=== PATIENT | male | born 1960 | race Caucasian/White ===

== ENCOUNTER 2021-05-20 08:08 | Emergency (ER) | payer OTHER, MEDICARE ==
[2021-05-20] MEDS ORDERED: Ondansetron 4 MG/2 ML SDV IVPUSH ONE (08:09)
[2021-05-20 08:28] VITALS: BP 146/64; PULSE 116
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
[2021-05-20] MEDS ORDERED: HYDROmorphone 2 MG/ML SDV IVPUSH ONE ×2 (08:37→09:49)
[2021-05-20 08:40] LABS: BASE EXCESS VENOUS,POC 3 mmol/L (-2-3); HCO3 VENOUS,POC 32 mmol/L (21-29); PCO2 VENOUS,POC 65 mmHg (41-51)
[2021-05-20] MEDS ORDERED: Iopamidol 755 Mg/ML 100 ML Bottle IV ONE (08:48)
== END 2021-05-20 10:40 ==
LOC: FB.ED 08:08
DX: S02.2XXA Fracture of nasal bones, initial encounter for closed fracture (principal); S42.022A Displaced fracture of shaft of left clavicle, initial encounter for closed fracture; S14.109A Unspecified injury at unspecified level of cervical spinal cord, initial encounter; E78.00 Pure hypercholesterolemia, unspecified; I10 Essential (primary) hypertension; Z79.82 Long term (current) use of aspirin; Z79.899 Other long term (current) drug therapy; V49.40XA Driver injured in collision with unspecified motor vehicles in traffic accident, initial encounter
CPT/HCPCS: 36415; 70450; 70486; 71045; 71260; 72125; 72170; 73000-LT; 74177; 80053; 80307; 83605; 84484; 85025; 85610; 85730; 86850; 86900; 86901; 93005; 93010; 96374; 96375; 96376; 99284; 99285-25; J1170; J2405; Q9967

== ENCOUNTER 2021-06-01 12:34 | Inpatient (IN) | payer MEDICARE, OTHER ==
[2021-06-01] MEDS ORDERED: Triamcinolone Acetonide 0.1% Oint 15 GM Tube TOP PRN (16:34)
[2021-06-01] MEDS ORDERED: Nitroglycerin 0.4 MG Tab.SL SL PRN (16:34)
[2021-06-01] MEDS ORDERED: Naloxone 0.4 MG/ML SDV IM PRN (16:34)
[2021-06-01] MEDS ORDERED: Ondansetron 4 MG Tab.DIS PO PRN (16:40)
[2021-06-01] MEDS ORDERED: Zolpidem 5 MG Tab PO PRN (16:48)
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
[2021-06-01] MEDS: oxyCODONE 5 MG Tab PO PRN ×2 (18:34→23:49)
[2021-06-01] MEDS: Apixaban 5 MG Tab PO SCH (21:34)
[2021-06-01] MEDS: Diltiazem 120 MG Cap.CD PO SCH (21:34)
[2021-06-01] MEDS: atorvaSTATin 40 MG Tab PO SCH (21:35)
[2021-06-01] MEDS: Metoprolol Tartrate 50 MG Tab PO SCH (21:35)
[2021-06-01] MEDS: Penicillin V Potassium 250 MG Tab PO SCH (21:36)
[2021-06-01] MEDS: hydrOXYzine HCl 25 MG Tab PO PRN (23:49)
[2021-06-02] MEDS: Pantoprazole 40 MG Tab.CR PO SCH (06:18)
[2021-06-02] MEDS: Furosemide 20 MG Tab PO SCH (09:32)
[2021-06-02] MEDS: Apixaban 5 MG Tab PO SCH ×2 (09:32→20:51)
[2021-06-02] MEDS: Aspirin 81 MG Tab.EC PO SCH (09:32)
[2021-06-02] MEDS: Diltiazem 120 MG Cap.CD PO SCH ×2 (09:32→20:51)
[2021-06-02] MEDS: Metoprolol Tartrate 50 MG Tab PO SCH ×2 (09:33→20:52)
[2021-06-02] MEDS: Clopidogrel 75 MG Tab PO SCH (09:33)
[2021-06-02] MEDS: Ezetimibe 10 MG Tab PO SCH (09:34)
[2021-06-02] MEDS: Penicillin V Potassium 250 MG Tab PO SCH ×2 (09:34→20:53)
[2021-06-02] MEDS: Multivitamin Tab PO SCH (09:34)
[2021-06-02] MEDS: oxyCODONE 5 MG Tab PO PRN ×2 (12:20→19:18)
[2021-06-02] MEDS: atorvaSTATin 40 MG Tab PO SCH (20:52)
[2021-06-03] MEDS: oxyCODONE 5 MG Tab PO PRN ×3 (02:33→21:31)
[2021-06-03] MEDS: hydrOXYzine HCl 25 MG Tab PO PRN (02:33)
[2021-06-03] MEDS: Pantoprazole 40 MG Tab.CR PO SCH (05:50)
[2021-06-03] MEDS: Apixaban 5 MG Tab PO SCH ×2 (09:24→20:34)
[2021-06-03] MEDS: Diltiazem 120 MG Cap.CD PO SCH ×2 (09:24→20:42)
[2021-06-03] MEDS: Metoprolol Tartrate 50 MG Tab PO SCH ×2 (09:25→20:43)
[2021-06-03] MEDS: Aspirin 81 MG Tab.EC PO SCH (09:25)
[2021-06-03] MEDS: Furosemide 20 MG Tab PO SCH (09:25)
[2021-06-03] MEDS: Ezetimibe 10 MG Tab PO SCH (09:26)
[2021-06-03] MEDS: Penicillin V Potassium 250 MG Tab PO SCH ×2 (09:26→20:35)
[2021-06-03] MEDS: Multivitamin Tab PO SCH (09:26)
[2021-06-03] MEDS: Clopidogrel 75 MG Tab PO SCH (09:26)
[2021-06-03] MEDS: Acetaminophen 325 MG Tab PO PRN (16:34)
[2021-06-03] MEDS: atorvaSTATin 40 MG Tab PO SCH (20:44)
[2021-06-04] MEDS: Pantoprazole 40 MG Tab.CR PO SCH (05:35)
[2021-06-04] MEDS: Apixaban 5 MG Tab PO SCH ×2 (08:56→20:06)
[2021-06-04] MEDS: Diltiazem 120 MG Cap.CD PO SCH ×2 (08:56→20:07)
[2021-06-04] MEDS: Aspirin 81 MG Tab.EC PO SCH (08:56)
[2021-06-04] MEDS: Penicillin V Potassium 250 MG Tab PO SCH ×2 (08:57→20:06)
[2021-06-04] MEDS: Metoprolol Tartrate 50 MG Tab PO SCH ×2 (08:57→20:06)
[2021-06-04] MEDS: Furosemide 20 MG Tab PO SCH (08:57)
[2021-06-04] MEDS: Ezetimibe 10 MG Tab PO SCH (08:57)
[2021-06-04] MEDS: Multivitamin Tab PO SCH (08:57)
[2021-06-04] MEDS: Clopidogrel 75 MG Tab PO SCH (08:57)
[2021-06-04] MEDS: oxyCODONE 5 MG Tab PO PRN (10:14)
[2021-06-04] MEDS: atorvaSTATin 40 MG Tab PO SCH (20:07)
[2021-06-04] MEDS: Acetaminophen 325 MG Tab PO PRN (22:52)
[2021-06-05] MEDS: hydrOXYzine HCl 25 MG Tab PO PRN ×2 (02:37→22:03)
[2021-06-05] MEDS: Pantoprazole 40 MG Tab.CR PO SCH (06:15)
[2021-06-05] MEDS: oxyCODONE 5 MG Tab PO PRN ×2 (08:34→18:52)
[2021-06-05] MEDS: Metoprolol Tartrate 50 MG Tab PO SCH ×2 (08:35→20:22)
[2021-06-05] MEDS: Penicillin V Potassium 250 MG Tab PO SCH ×2 (08:36→20:22)
[2021-06-05] MEDS: Apixaban 5 MG Tab PO SCH ×2 (08:36→20:23)
[2021-06-05] MEDS: Aspirin 81 MG Tab.EC PO SCH (08:36)
[2021-06-05] MEDS: Multivitamin Tab PO SCH (08:36)
[2021-06-05] MEDS: Ezetimibe 10 MG Tab PO SCH (08:37)
[2021-06-05] MEDS: Diltiazem 120 MG Cap.CD PO SCH ×2 (08:37→20:23)
[2021-06-05] MEDS: Clopidogrel 75 MG Tab PO SCH (08:37)
[2021-06-05] MEDS: Furosemide 20 MG Tab PO SCH (08:37)
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
[2021-06-05] MEDS: atorvaSTATin 40 MG Tab PO SCH (20:23)
[2021-06-06] MEDS: Pantoprazole 40 MG Tab.CR PO SCH (06:02)
[2021-06-06] MEDS: oxyCODONE 5 MG Tab PO PRN ×2 (08:08→20:04)
[2021-06-06] MEDS: Ezetimibe 10 MG Tab PO SCH (08:09)
[2021-06-06] MEDS: Diltiazem 120 MG Cap.CD PO SCH ×2 (08:09→20:06)
[2021-06-06] MEDS: Apixaban 5 MG Tab PO SCH ×2 (08:09→20:01)
[2021-06-06] MEDS: Clopidogrel 75 MG Tab PO SCH (08:09)
[2021-06-06] MEDS: Aspirin 81 MG Tab.EC PO SCH (08:09)
[2021-06-06] MEDS: Penicillin V Potassium 250 MG Tab PO SCH ×2 (08:10→20:04)
[2021-06-06] MEDS: Multivitamin Tab PO SCH (08:10)
[2021-06-06] MEDS: Furosemide 20 MG Tab PO SCH (08:10)
[2021-06-06] MEDS: Metoprolol Tartrate 50 MG Tab PO SCH ×2 (08:10→20:02)
[2021-06-06] MEDS: atorvaSTATin 40 MG Tab PO SCH (20:02)
[2021-06-07] MEDS: Sodium Chloride 0.65% Nasal Spray 45 ML Bottle NAS PRN (04:43)
[2021-06-07] MEDS: Pantoprazole 40 MG Tab.CR PO SCH (05:06)
[2021-06-07] MEDS: oxyCODONE 5 MG Tab PO PRN (08:14)
[2021-06-07] MEDS: Apixaban 5 MG Tab PO SCH ×2 (08:24→20:59)
[2021-06-07] MEDS: Diltiazem 120 MG Cap.CD PO SCH ×2 (08:24→21:01)
[2021-06-07] MEDS: Aspirin 81 MG Tab.EC PO SCH (08:25)
[2021-06-07] MEDS: Metoprolol Tartrate 50 MG Tab PO SCH ×2 (08:25→20:59)
[2021-06-07] MEDS: Furosemide 20 MG Tab PO SCH (08:25)
[2021-06-07] MEDS: Clopidogrel 75 MG Tab PO SCH (08:25)
[2021-06-07] MEDS: Multivitamin Tab PO SCH (08:26)
[2021-06-07] MEDS: Penicillin V Potassium 250 MG Tab PO SCH ×2 (08:26→20:59)
[2021-06-07] MEDS: Ezetimibe 10 MG Tab PO SCH (08:26)
[2021-06-07] MEDS: atorvaSTATin 40 MG Tab PO SCH (21:00)
[2021-06-08] MEDS: hydrOXYzine HCl 25 MG Tab PO PRN ×2 (00:53→20:56)
[2021-06-08] MEDS: Pantoprazole 40 MG Tab.CR PO SCH (06:14)
[2021-06-08] MEDS: oxyCODONE 5 MG Tab PO PRN (06:29)
[2021-06-08] MEDS: Diltiazem 120 MG Cap.CD PO SCH ×2 (19:50→20:57)
[2021-06-08] MEDS: Furosemide 20 MG Tab PO SCH (19:51)
[2021-06-08] MEDS: Apixaban 5 MG Tab PO SCH ×2 (19:51→20:56)
[2021-06-08] MEDS: Aspirin 81 MG Tab.EC PO SCH (19:51)
[2021-06-08] MEDS: Metoprolol Tartrate 50 MG Tab PO SCH ×2 (19:52→21:02)
[2021-06-08] MEDS: Multivitamin Tab PO SCH (19:53)
[2021-06-08] MEDS: Penicillin V Potassium 250 MG Tab PO SCH ×2 (19:53→21:01)
[2021-06-08] MEDS: Ezetimibe 10 MG Tab PO SCH (19:53)
[2021-06-08] MEDS: Clopidogrel 75 MG Tab PO SCH (19:53)
[2021-06-08] MEDS: atorvaSTATin 40 MG Tab PO SCH (21:01)
[2021-06-08] MEDS: Sodium Chloride 0.65% Nasal Spray 45 ML Bottle NAS PRN (22:00)
[2021-06-09] MEDS: oxyCODONE 5 MG Tab PO PRN (04:57)
[2021-06-09] MEDS: Sodium Chloride 0.65% Nasal Spray 45 ML Bottle NAS PRN ×2 (04:57→08:23)
[2021-06-09] MEDS: Pantoprazole 40 MG Tab.CR PO SCH (05:00)
[2021-06-09] MEDS: Apixaban 5 MG Tab PO SCH ×2 (08:25→20:58)
[2021-06-09] MEDS: Clopidogrel 75 MG Tab PO SCH (08:26)
[2021-06-09] MEDS: Aspirin 81 MG Tab.EC PO SCH (08:27)
[2021-06-09] MEDS: Diltiazem 120 MG Cap.CD PO SCH ×2 (08:28→20:57)
[2021-06-09] MEDS: Penicillin V Potassium 250 MG Tab PO SCH ×2 (08:29→21:00)
[2021-06-09] MEDS: Metoprolol Tartrate 50 MG Tab PO SCH ×2 (08:30→20:59)
[2021-06-09] MEDS: Furosemide 20 MG Tab PO SCH (08:31)
[2021-06-09] MEDS: Multivitamin Tab PO SCH (08:31)
[2021-06-09] MEDS: Ezetimibe 10 MG Tab PO SCH (08:32)
[2021-06-09] MEDS: atorvaSTATin 40 MG Tab PO SCH (20:58)
[2021-06-09] MEDS: hydrOXYzine HCl 25 MG Tab PO PRN (21:01)
[2021-06-10] MEDS: Pantoprazole 40 MG Tab.CR PO SCH (05:10)
[2021-06-10] MEDS: Sodium Chloride 0.65% Nasal Spray 45 ML Bottle NAS PRN ×3 (05:21→21:21)
[2021-06-10] MEDS: oxyCODONE 5 MG Tab PO PRN (08:36)
[2021-06-10] MEDS: Penicillin V Potassium 250 MG Tab PO SCH ×2 (08:38→21:07)
[2021-06-10] MEDS: Furosemide 20 MG Tab PO SCH (08:38)
[2021-06-10] MEDS: Metoprolol Tartrate 50 MG Tab PO SCH ×2 (08:39→21:07)
[2021-06-10] MEDS: Apixaban 5 MG Tab PO SCH ×2 (08:40→21:06)
[2021-06-10] MEDS: Multivitamin Tab PO SCH (08:40)
[2021-06-10] MEDS: Clopidogrel 75 MG Tab PO SCH (08:43)
[2021-06-10] MEDS: Aspirin 81 MG Tab.EC PO SCH (08:43)
[2021-06-10] MEDS: Diltiazem 120 MG Cap.CD PO SCH ×2 (08:44→21:06)
[2021-06-10] MEDS: Ezetimibe 10 MG Tab PO SCH (08:45)
[2021-06-10] MEDS: atorvaSTATin 40 MG Tab PO SCH (21:07)
[2021-06-10] MEDS: hydrOXYzine HCl 25 MG Tab PO PRN (21:25)
[2021-06-11] MEDS: Sodium Chloride 0.65% Nasal Spray 45 ML Bottle NAS PRN (01:13)
[2021-06-11] MEDS: Pantoprazole 40 MG Tab.CR PO SCH (05:03)
[2021-06-11] MEDS: oxyCODONE 5 MG Tab PO PRN (07:40)
[2021-06-11] MEDS: Diltiazem 120 MG Cap.CD PO SCH ×2 (08:56→20:50)
[2021-06-11] MEDS: Apixaban 5 MG Tab PO SCH ×2 (08:59→20:51)
[2021-06-11] MEDS: Furosemide 20 MG Tab PO SCH (08:59)
[2021-06-11] MEDS: Aspirin 81 MG Tab.EC PO SCH (08:59)
[2021-06-11] MEDS: Clopidogrel 75 MG Tab PO SCH (09:00)
[2021-06-11] MEDS: Metoprolol Tartrate 50 MG Tab PO SCH ×2 (09:00→20:51)
[2021-06-11] MEDS: Ezetimibe 10 MG Tab PO SCH (09:01)
[2021-06-11] MEDS: Multivitamin Tab PO SCH (09:01)
[2021-06-11] MEDS: Penicillin V Potassium 250 MG Tab PO SCH ×2 (09:01→20:51)
[2021-06-11] MEDS: Fluticasone Propionate Nasal Spray 16 GM Bottle NASBOTH SCH (14:12)
[2021-06-11] MEDS: atorvaSTATin 40 MG Tab PO SCH (20:50)
[2021-06-11] MEDS: hydrOXYzine HCl 25 MG Tab PO PRN (22:10)
[2021-06-12] MEDS: Acetaminophen/HYDROcodone 325-5 MG Tab PO PRN (05:00)
[2021-06-12] MEDS: Sodium Chloride 0.65% Nasal Spray 45 ML Bottle NAS PRN (05:00)
[2021-06-12] MEDS: Pantoprazole 40 MG Tab.CR PO SCH (05:01)
[2021-06-12] MEDS: Diltiazem 120 MG Cap.CD PO SCH ×2 (08:01→20:06)
[2021-06-12] MEDS: Penicillin V Potassium 250 MG Tab PO SCH ×2 (08:01→20:07)
[2021-06-12] MEDS: Apixaban 5 MG Tab PO SCH ×2 (08:01→20:06)
[2021-06-12] MEDS: Furosemide 20 MG Tab PO SCH (08:01)
[2021-06-12] MEDS: Multivitamin Tab PO SCH (08:01)
[2021-06-12] MEDS: Aspirin 81 MG Tab.EC PO SCH (08:01)
[2021-06-12] MEDS: Clopidogrel 75 MG Tab PO SCH (08:01)
[2021-06-12] MEDS: Ezetimibe 10 MG Tab PO SCH (08:01)
[2021-06-12] MEDS: Metoprolol Tartrate 50 MG Tab PO SCH ×2 (08:02→20:07)
[2021-06-12] MEDS: Fluticasone Propionate Nasal Spray 16 GM Bottle NASBOTH SCH (08:02)
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
[2021-06-12] MEDS ORDERED: acetaZOLAMIDE 250 MG Tab PO ONE (13:59)
[2021-06-12] MEDS: atorvaSTATin 40 MG Tab PO SCH (20:06)
[2021-06-12] MEDS: hydrOXYzine HCl 25 MG Tab PO PRN (21:40)
[2021-06-13] MEDS: Pantoprazole 40 MG Tab.CR PO SCH (05:04)
[2021-06-13] MEDS: Apixaban 5 MG Tab PO SCH ×2 (09:06→21:04)
[2021-06-13] MEDS: Aspirin 81 MG Tab.EC PO SCH (09:07)
[2021-06-13] MEDS: Diltiazem 120 MG Cap.CD PO SCH ×2 (09:07→21:05)
[2021-06-13] MEDS: Fluticasone Propionate Nasal Spray 16 GM Bottle NASBOTH SCH (09:08)
[2021-06-13] MEDS: Furosemide 20 MG Tab PO SCH (09:09)
[2021-06-13] MEDS: Ezetimibe 10 MG Tab PO SCH (09:10)
[2021-06-13] MEDS: Clopidogrel 75 MG Tab PO SCH (09:10)
[2021-06-13] MEDS: Multivitamin Tab PO SCH (09:11)
[2021-06-13] MEDS: Metoprolol Tartrate 50 MG Tab PO SCH ×2 (09:11→21:05)
[2021-06-13] MEDS: Penicillin V Potassium 250 MG Tab PO SCH ×2 (09:11→21:05)
[2021-06-13] MEDS: Acetaminophen/HYDROcodone 325-5 MG Tab PO PRN (10:39)
[2021-06-13] MEDS ORDERED: Furosemide 20 MG Tab PO ONE (12:00)
[2021-06-13] MEDS: atorvaSTATin 40 MG Tab PO SCH (21:04)
[2021-06-14] MEDS: Pantoprazole 40 MG Tab.CR PO SCH (06:10)
[2021-06-14] MEDS: Acetaminophen 325 MG Tab PO PRN (07:52)
[2021-06-14] MEDS: Diltiazem 120 MG Cap.CD PO SCH ×2 (08:01→20:40)
[2021-06-14] MEDS: Apixaban 5 MG Tab PO SCH ×2 (08:01→20:40)
[2021-06-14] MEDS: Aspirin 81 MG Tab.EC PO SCH (08:01)
[2021-06-14] MEDS: Fluticasone Propionate Nasal Spray 16 GM Bottle NASBOTH SCH (08:01)
[2021-06-14] MEDS: Furosemide 20 MG Tab PO SCH (08:01)
[2021-06-14] MEDS: Metoprolol Tartrate 50 MG Tab PO SCH ×2 (08:02→20:40)
[2021-06-14] MEDS: Ezetimibe 10 MG Tab PO SCH (08:02)
[2021-06-14] MEDS: Penicillin V Potassium 250 MG Tab PO SCH ×2 (08:02→20:41)
[2021-06-14] MEDS: Clopidogrel 75 MG Tab PO SCH (08:02)
[2021-06-14] MEDS: Multivitamin Tab PO SCH (08:02)
[2021-06-14] MEDS ORDERED: Furosemide 20 MG Tab PO ONE (10:54)
[2021-06-14] MEDS: Acetaminophen/HYDROcodone 325-5 MG Tab PO PRN (18:09)
[2021-06-14] MEDS: atorvaSTATin 40 MG Tab PO SCH (20:40)
[2021-06-14] MEDS: hydrOXYzine HCl 25 MG Tab PO PRN (21:22)
[2021-06-15] MEDS: Pantoprazole 40 MG Tab.CR PO SCH (06:00)
[2021-06-15] MEDS: Acetaminophen/HYDROcodone 325-5 MG Tab PO PRN ×2 (07:41→16:53)
[2021-06-15] MEDS: Diltiazem 120 MG Cap.CD PO SCH ×2 (08:09→20:09)
[2021-06-15] MEDS: Fluticasone Propionate Nasal Spray 16 GM Bottle NASBOTH SCH (08:09)
[2021-06-15] MEDS: Apixaban 5 MG Tab PO SCH ×2 (08:09→20:04)
[2021-06-15] MEDS: Metoprolol Tartrate 50 MG Tab PO SCH ×2 (08:10→20:09)
[2021-06-15] MEDS: Furosemide 20 MG Tab PO SCH (08:10)
[2021-06-15] MEDS: Aspirin 81 MG Tab.EC PO SCH (08:10)
[2021-06-15] MEDS: Clopidogrel 75 MG Tab PO SCH (08:10)
[2021-06-15] MEDS: Multivitamin Tab PO SCH (08:11)
[2021-06-15] MEDS: Ezetimibe 10 MG Tab PO SCH (08:11)
[2021-06-15] MEDS: Penicillin V Potassium 250 MG Tab PO SCH ×2 (08:11→20:06)
[2021-06-15] MEDS: hydrOXYzine HCl 25 MG Tab PO PRN ×2 (11:20→22:08)
[2021-06-15] MEDS: atorvaSTATin 40 MG Tab PO SCH (20:04)
[2021-06-16] MEDS: Acetaminophen 325 MG Tab PO PRN ×2 (04:05→18:46)
[2021-06-16] MEDS: Pantoprazole 40 MG Tab.CR PO SCH (06:12)
[2021-06-16] MEDS: Acetaminophen/HYDROcodone 325-5 MG Tab PO PRN ×3 (06:14→20:16)
[2021-06-16] MEDS: Fluticasone Propionate Nasal Spray 16 GM Bottle NASBOTH SCH (09:00)
[2021-06-16] MEDS: Aspirin 81 MG Tab.EC PO SCH (09:04)
[2021-06-16] MEDS: Apixaban 5 MG Tab PO SCH ×2 (09:04→20:15)
[2021-06-16] MEDS: Diltiazem 120 MG Cap.CD PO SCH ×2 (09:04→20:16)
[2021-06-16] MEDS: Furosemide 20 MG Tab PO SCH (09:04)
[2021-06-16] MEDS: Metoprolol Tartrate 50 MG Tab PO SCH ×2 (09:05→20:15)
[2021-06-16] MEDS: Ezetimibe 10 MG Tab PO SCH (09:05)
[2021-06-16] MEDS: Clopidogrel 75 MG Tab PO SCH (09:05)
[2021-06-16] MEDS: Multivitamin Tab PO SCH (09:05)
[2021-06-16] MEDS: Penicillin V Potassium 250 MG Tab PO SCH ×2 (09:05→20:15)
[2021-06-16] MEDS: hydrOXYzine HCl 25 MG Tab PO PRN ×2 (13:41→20:16)
[2021-06-16] MEDS: Albuterol/Ipratropium 3.0-0.5 MG/3 ML Neb Soln INH PRN (20:15)
[2021-06-16] MEDS: atorvaSTATin 40 MG Tab PO SCH (20:15)
[2021-06-17] MEDS: Acetaminophen/HYDROcodone 325-5 MG Tab PO PRN ×3 (02:51→20:02)
[2021-06-17] MEDS: Albuterol/Ipratropium 3.0-0.5 MG/3 ML Neb Soln INH PRN ×2 (03:04→10:16)
[2021-06-17] MEDS: hydrOXYzine HCl 25 MG Tab PO PRN ×2 (03:10→17:24)
[2021-06-17] MEDS: Pantoprazole 40 MG Tab.CR PO SCH (06:22)
[2021-06-17] MEDS: Acetaminophen 325 MG Tab PO PRN ×2 (07:48→17:24)
[2021-06-17] MEDS: Diltiazem 120 MG Cap.CD PO SCH ×2 (08:00→20:03)
[2021-06-17] MEDS: Fluticasone Propionate Nasal Spray 16 GM Bottle NASBOTH SCH (08:00)
[2021-06-17] MEDS: Apixaban 5 MG Tab PO SCH ×2 (08:00→20:03)
[2021-06-17] MEDS: Penicillin V Potassium 250 MG Tab PO SCH (08:01)
[2021-06-17] MEDS: Metoprolol Tartrate 50 MG Tab PO SCH ×2 (08:01→20:04)
[2021-06-17] MEDS: Ezetimibe 10 MG Tab PO SCH (08:01)
[2021-06-17] MEDS: Multivitamin Tab PO SCH (08:01)
[2021-06-17] MEDS: Clopidogrel 75 MG Tab PO SCH (08:01)
[2021-06-17] MEDS: Aspirin 81 MG Tab.EC PO SCH (08:01)
[2021-06-17] MEDS: Furosemide 20 MG Tab PO SCH (08:01)
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
[2021-06-17] MEDS: Albuterol/Ipratropium 3.0-0.5 MG/3 ML Neb Soln NEB SCH ×3 (11:33→22:16)
[2021-06-17] MEDS: Levofloxacin 500 MG Tab PO SCH (11:37)
[2021-06-17] MEDS ORDERED: acetaZOLAMIDE 250 MG Tab PO ONE (14:53)
[2021-06-17] MEDS: guaiFENesin/Dextromethorphan 100-10 MG/5 ML Soln 5 ML Cup PO PRN (15:06)
[2021-06-17] MEDS: atorvaSTATin 40 MG Tab PO SCH (20:03)
[2021-06-17] MEDS: Budesonide 0.5 MG/2 ML Neb Susp NEB SCH (22:17)
[2021-06-17] MEDS: LORazepam 0.5 MG Tab PO PRN (22:55)
[2021-06-18] MEDS: Albuterol/Ipratropium 3.0-0.5 MG/3 ML Neb Soln INH PRN (02:36)
[2021-06-18] MEDS: Acetaminophen/HYDROcodone 325-5 MG Tab PO PRN ×3 (02:36→17:42)
[2021-06-18] MEDS: hydrOXYzine HCl 25 MG Tab PO PRN ×2 (02:36→11:29)
[2021-06-18] MEDS: Albuterol/Ipratropium 3.0-0.5 MG/3 ML Neb Soln NEB SCH ×3 (06:11→20:56)
[2021-06-18] MEDS: Budesonide 0.5 MG/2 ML Neb Susp NEB SCH ×2 (06:11→21:00)
[2021-06-18] MEDS: Pantoprazole 40 MG Tab.CR PO SCH (06:12)
[2021-06-18] MEDS: Diltiazem 120 MG Cap.CD PO SCH ×2 (08:06→20:50)
[2021-06-18] MEDS: Apixaban 5 MG Tab PO SCH ×2 (08:06→20:56)
[2021-06-18] MEDS: Metoprolol Tartrate 50 MG Tab PO SCH ×2 (08:06→20:58)
[2021-06-18] MEDS: Aspirin 81 MG Tab.EC PO SCH (08:06)
[2021-06-18] MEDS: Fluticasone Propionate Nasal Spray 16 GM Bottle NASBOTH SCH (08:06)
[2021-06-18] MEDS: Ezetimibe 10 MG Tab PO SCH (08:06)
[2021-06-18] MEDS: Clopidogrel 75 MG Tab PO SCH (08:07)
[2021-06-18] MEDS: Multivitamin Tab PO SCH (08:07)
[2021-06-18] MEDS ORDERED: Furosemide 40 MG Tab PO SCH (09:00)
[2021-06-18] MEDS ORDERED: Torsemide 20 MG Tab PO SCH (09:00)
[2021-06-18] MEDS: Spironolactone 25 MG Tab PO SCH (09:06)
[2021-06-18] MEDS: Acetaminophen 325 MG Tab PO PRN ×2 (11:29→21:43)
[2021-06-18] MEDS: Levofloxacin 500 MG Tab PO SCH (11:34)
[2021-06-18] MEDS: Furosemide 40 MG Tab PO SCH (17:12)
[2021-06-18] MEDS: LORazepam 0.5 MG Tab PO PRN (17:42)
[2021-06-18] MEDS: atorvaSTATin 40 MG Tab PO SCH (21:16)
[2021-06-19] MEDS: guaiFENesin/Dextromethorphan 100-10 MG/5 ML Soln 5 ML Cup PO PRN (04:26)
[2021-06-19] MEDS: Acetaminophen/HYDROcodone 325-5 MG Tab PO PRN ×3 (04:34→21:52)
[2021-06-19] MEDS: Albuterol/Ipratropium 3.0-0.5 MG/3 ML Neb Soln INH PRN (04:35)
[2021-06-19] MEDS: Budesonide 0.5 MG/2 ML Neb Susp NEB SCH ×3 (05:05→20:33)
[2021-06-19] MEDS: Pantoprazole 40 MG Tab.CR PO SCH (05:05)
[2021-06-19] MEDS: Albuterol/Ipratropium 3.0-0.5 MG/3 ML Neb Soln NEB SCH ×3 (06:10→20:52)
[2021-06-19] MEDS: LORazepam 0.5 MG Tab PO PRN ×2 (08:25→20:16)
[2021-06-19] MEDS: Furosemide 40 MG Tab PO SCH ×2 (08:28→15:49)
[2021-06-19] MEDS: Spironolactone 25 MG Tab PO SCH (08:29)
[2021-06-19] MEDS: Ezetimibe 10 MG Tab PO SCH (08:29)
[2021-06-19] MEDS: Multivitamin Tab PO SCH (08:29)
[2021-06-19] MEDS: Apixaban 5 MG Tab PO SCH ×2 (08:29→20:19)
[2021-06-19] MEDS: Metoprolol Tartrate 50 MG Tab PO SCH ×2 (08:29→20:21)
[2021-06-19] MEDS: Diltiazem 120 MG Cap.CD PO SCH ×2 (08:29→20:22)
[2021-06-19] MEDS: Aspirin 81 MG Tab.Chew PO SCH (08:30)
[2021-06-19] MEDS: Fluticasone Propionate Nasal Spray 16 GM Bottle NASBOTH SCH (08:30)
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
[2021-06-19] MEDS: Levofloxacin 500 MG Tab PO SCH (11:07)
[2021-06-19] MEDS: atorvaSTATin 40 MG Tab PO SCH (20:20)
[2021-06-19] MEDS: Acetaminophen 325 MG Tab PO PRN (20:26)
[2021-06-19] MEDS ORDERED: Mirtazapine 15 MG Tab PO SCH (21:00)
[2021-06-20] MEDS: hydrOXYzine HCl 25 MG Tab PO PRN (01:32)
[2021-06-20] MEDS: LORazepam 0.5 MG Tab PO PRN ×2 (01:57→08:15)
[2021-06-20] MEDS: Pantoprazole 40 MG Tab.CR PO SCH (05:55)
[2021-06-20] MEDS: Budesonide 0.5 MG/2 ML Neb Susp NEB SCH (07:13)
[2021-06-20] MEDS: Albuterol/Ipratropium 3.0-0.5 MG/3 ML Neb Soln NEB SCH ×2 (07:14→15:24)
[2021-06-20 08:01] VITALS: BP 117/58; PULSE 69
[2021-06-20] MEDS: Diltiazem 120 MG Cap.CD PO SCH (08:06)
[2021-06-20] MEDS: Apixaban 5 MG Tab PO SCH (08:06)
[2021-06-20] MEDS: Aspirin 81 MG Tab.Chew PO SCH (08:06)
[2021-06-20] MEDS: Spironolactone 25 MG Tab PO SCH (08:06)
[2021-06-20] MEDS: Furosemide 40 MG Tab PO SCH ×2 (08:06→15:24)
[2021-06-20] MEDS: Metoprolol Tartrate 50 MG Tab PO SCH (08:07)
[2021-06-20] MEDS: Multivitamin Tab PO SCH (08:07)
[2021-06-20] MEDS: Fluticasone Propionate Nasal Spray 16 GM Bottle NASBOTH SCH (08:07)
[2021-06-20] MEDS: Ezetimibe 10 MG Tab PO SCH (08:08)
[2021-06-20] MEDS: Acetaminophen/HYDROcodone 325-5 MG Tab PO PRN (08:31)
[2021-06-20] MEDS: Levofloxacin 500 MG Tab PO SCH (12:34)
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
[2021-06-24] MEDS ORDERED: Penicillin V Potassium 250 MG Tab PO SCH (09:00)
== END 2021-06-20 09:15 | DRG 559 ==
LOC: FB.MS 15:23
PROVIDERS: ADMIT Student in an Organized Health Care Education/Training Program; ATTEND Family Medicine
DX: S02.2XXD Fracture of nasal bones, subsequent encounter for fracture with routine healing (principal); J18.9 Pneumonia, unspecified organism; J90 Pleural effusion, not elsewhere classified; I50.32 Chronic diastolic (congestive) heart failure; J70.9 Respiratory conditions due to unspecified external agent; S42.023D Displaced fracture of shaft of unspecified clavicle, subsequent encounter for fracture with routine healing; S14.109D Unspecified injury at unspecified level of cervical spinal cord, subsequent encounter; I25.10 Atherosclerotic heart disease of native coronary artery without angina pectoris; E03.9 Hypothyroidism, unspecified; Z66 Do not resuscitate; K63.5 Polyp of colon; I05.0 Rheumatic mitral stenosis; I48.91 Unspecified atrial fibrillation; E78.00 Pure hypercholesterolemia, unspecified; I11.0 Hypertensive heart disease with heart failure; F41.9 Anxiety disorder, unspecified; F32.9 Major depressive disorder, single episode, unspecified; K21.9 Gastro-esophageal reflux disease without esophagitis; G47.30 Sleep apnea, unspecified; E78.5 Hyperlipidemia, unspecified; S22.089D Unspecified fracture of T11-T12 vertebra, subsequent encounter for fracture with routine healing; Z85.71 Personal history of Hodgkin lymphoma; Z95.1 Presence of aortocoronary bypass graft; Z98.1 Arthrodesis status; Z79.82 Long term (current) use of aspirin; Z79.890 Hormone replacement therapy; Z79.899 Other long term (current) drug therapy; Z79.01 Long term (current) use of anticoagulants; Z95.2 Presence of prosthetic heart valve; Z98.890 Other specified postprocedural states; Z95.5 Presence of coronary angioplasty implant and graft
CPT/HCPCS: 36415; 71046; 71250; 80048; 94150; 94640; 94760; 96125-GN; 97110-GO; 97116-GP; 97129-GN; 97130-GN; 97161-GP; 97165-GO; 97530-GO; 97530-GP; 97535-GO; 97542-GO; A9270-GY; J7620-GY